=== PATIENT | female | born 1965 | race Caucasian/White ===

== ENCOUNTER → 2021-02-12 | Outpatient (CLI) | payer OTHER ==
[~2021-02-12] MED LIST: BUPRENORPHIN-N1 EACH SL; BUSPAR 10MG10 MG PO; CYMBALTA 30 MG30 MG PO; DULERA 100 MCG8.8 GM INH; FERROUS SULFAT325 MG PO; IBUPROFEN600 MG PO; LEVAQUIN750 MG PO; LIPITOR TAB 2020 MG PO; MEDROL4 MG PO; PANTOPRAZOLE SO40 MG PO; PROAIR HFA8.5 GM INH; PROZAC20 MG PO; TOPAMAX50 MG PO
== END ==
LOC: RAD 14:51
DX: M79.604 Pain in right leg (principal); M25.461 Effusion, right knee
CPT/HCPCS: 73502; 73552; 73564